=== PATIENT | male | born 1985 | race Asian ===

== ENCOUNTER 2022-01-05 21:05 | Emergency (ER) | payer OTHER ==
--- NOTE | 2022-01-05 21:23 | NUR ---
Called first time - no show in lobby.
--- NOTE | 2022-01-05 21:40 | NUR ---
Called second time- no show in Lobby and outside.
--- NOTE | 2022-01-05 21:56 | NUR ---
PATIENT LEFT WITHOUT BEING SEEN BY DR. VASQUEZ. NO FURTHER CARE PROVIDED FOR PATIENT.
[2022-01-06] MEDS ORDERED: VITA-423 PO (03:20)
[2022-01-06] MEDS ORDERED: ASCO500T95 PO (03:20)
[2022-01-06] MEDS ORDERED: QUER1POW (03:20)
[2022-01-06] MEDS ORDERED: CHOL1CAP PO (03:20)
== END 2022-01-05 21:23 | disposition left against medical advice (07) ==
LOC: MED 21:05
DX: U07.1 COVID-19 (principal); Z53.21 Procedure and treatment not carried out due to patient leaving prior to being seen by health care provider

== ENCOUNTER 2022-01-06 01:12 | Emergency (ER) | payer OTHER ==
[~2022-01-06] VITALS: Ht 167.6 cm; Wt 72.6 kg
[2022-01-06 01:50] VITALS: BP 144/95
--- NOTE | 2022-01-06 02:00 | NUR ---
Dr. Elizabeth examining patient.
--- NOTE | 2022-01-06 02:10 | NUR ---
COVID-19 swabs collected and sent to lab.
[2022-01-06] MEDS ORDERED: VITA-423 PO (03:20)
[2022-01-06] MEDS ORDERED: CHOL1CAP PO (03:20)
[2022-01-06] MEDS ORDERED: ASCO500T95 PO (03:20)
[2022-01-06] MEDS ORDERED: QUER1POW (03:20)
[2022-01-06 03:25] VITALS: BP 144/95
--- NOTE | 2022-01-06 03:25 | NUR ---
Patient discharged with v/s stable. Written and verbal after care instructions given and explained. Patient alert, oriented and verbalized understanding of instructions. Ambulatory with steady gait. All questions addressed prior to discharge. ID band removed. Patient advised to follow up with PMD. Rx of Vitamin C, cholecalciferol, Quercetin Dihydrate,vitatminD3/VitaminK2 given. Patient educated on indication of medication including possible reaction and side effects. Opportunity to ask questions provided and answered.
== END 2022-01-06 03:25 | disposition home or self-care (01) ==
LOC: MED 01:12
DX: U07.1 COVID-19 (principal); Z79.899 Other long term (current) drug therapy
CPT/HCPCS: 71045; 99284